=== PATIENT | female | born 1985 | race Caucasian/White ===

== ENCOUNTER 2022-10-26 17:46 | Emergency (ER) | payer OTHER ==
[~2022-10-26] VITALS: Ht 160 cm; Wt 54.4 kg
[2022-10-26 17:54] VITALS: BP 110/57
--- NOTE | 2022-10-26 18:02 | NUR ---
Pt from [facility] onto wheelchair, assisted to lobby.
--- NOTE | 2022-10-26 18:04 | NUR ---
Pt instructed with clean catch specimen; ambulated to lobby restroom.
[2022-10-26] MEDS ORDERED: MORPHINE SULFATE 10 MG/ML VIAL IVP ONE (19:00)
[2022-10-26 20:39] VITALS: BP 0/0
--- NOTE | 2022-10-26 20:39 | NUR ---
PATIENT ELOPED FROM FACILITY. DISCHARGE INSTRUCTIONS NOT GIVEN TO PATIENT. DR. HALL NOTIFIED.
--- NOTE | 2022-10-26 20:39 | NUR ---
PT CALLED FOR BLOOD DRAW. NO ANSWER PER PHLEBOTIMIST [facility].
== END 2022-10-26 20:39 | disposition left against medical advice (07) ==
LOC: MED 17:46
DX: R10.84 Generalized abdominal pain (principal); F11.10 Opioid abuse, uncomplicated
CPT/HCPCS: 99283